=== PATIENT | female | born 1955 | race Caucasian/White ===

== ENCOUNTER 2022-03-13 08:43 | Outpatient (CLI) | payer MEDICARE ==
[2022-03-13] MEDS ORDERED: Magnevist 469MG/ML 20 ML VIAL ONE (14:46)
== END 2022-03-13 08:44 | disposition home or self-care (01) ==
LOC: CSHMRI 08:43
PROVIDERS: ATTEND Otolaryngology Plastic Surgery within the Head & Neck
DX: H93.A2 Pulsatile tinnitus, left ear (principal); R93.0 Abnormal findings on diagnostic imaging of skull and head, not elsewhere classified
CPT/HCPCS: 70544; 70549; 82565; A9579